=== PATIENT | male | born 1965 | race Caucasian/White ===

== ENCOUNTER 2020-06-17 20:24 | Emergency (ER) | payer OTHER, SELFPAY ==
[2020-06-17 20:24] VITALS: BP 136/86; PULSE 92; RESP 18; TEMP 36.6; O2SAT 95; BMI 35.1
--- NOTE | 2020-06-17 20:36 | US_ITS ---
STUDY: SCROTUM ULTRASOUND REASON FOR EXAM: Male, 55 years old. LT TESTICLE SWELLING S/P LT SPERMATOCELECTOMY TECHNIQUE: Ultrasound evaluation of the scrotum was performed with color Doppler and static rankin-scale imaging. COMPARISON: None. FINDINGS: RIGHT TESTICLE INTRATESTICULAR: There is a normal size of the right testicle. The right testicle measures 4.6 x 3.1 x 2.4 cm. There is a homogenous echotexture. There is normal arterial and normal venous vascularity. There is no demonstrated right testicular mass or cyst. EXTRATESTICULAR: The epididymis is normal in size. The epididymis head measures 1.3 x 1.1 x 0.8 cm. There is normal vascularity of the epididymis. Epididymis cyst measuring 6 x 5 x 5 mm. There is a small hydrocele. There is no demonstrated varicocele. There is no demonstrated extratesticular mass or cyst. Right scrotal wall thickening and hypervascularity. This measures up to 3 mm. LEFT TESTICLE INTRATESTICULAR: There is a normal size of the left testicle. The left testicle measures 4.2 x 2.7 x 2.3 cm. There is a homogenous echotexture. There is normal arterial and normal venous vascularity. There is no demonstrated left testicular mass or cyst. EXTRATESTICULAR: The epididymis is normal in size. The epididymis head measures 1.3 x 1.1 x 0.9 cm. There is normal vascularity of the epididymis. 2 x 2 x 2 mm epididymis cyst. There is a moderate size hydrocele. There is no demonstrated varicocele. There is no demonstrated extratesticular mass or cyst. A drainage catheter is present in the left scrotum. Left scrotal wall thickening and hypervascularity. This measures up to 7 mm. US/Testicular with Arterial Flow IMPRESSION: Drainage catheter in the left scrotum. Bilateral hydroceles, larger on the left. Bilateral scrotal wall thickening and hypervascularity, more extensive on the left. This could be postoperative in nature, although superimposed cellulitis cannot be excluded based on the ultrasound appearance. No evidence of intratesticular pathology. No gross intrascrotal hemorrhage is visible by ultrasound. Electronically Signed: Jose Saunders MD at 21:55 EDT Tel , Service support ,
[2020-06-17] MEDS: Morphine 4 MG/ML Syringe IV (22:32)
[2020-06-17 22:42] LABS: Absolute Lymphocyte Count 1.76 X10^3/uL (0.83-4.51); Absolute Neutrophil Count 5.1 X10^3/uL (2.0-7.7); Basophil# 0.03 X10^3/uL; Basophil% 0.4 % (0-1); Eosinophil# 0.18 X10^3/uL; Eosinophils% 2.3 % (0-5); Lymphocyte # 1.76 X10^3/ul (4.0); Lymphocyte % 22.3 % (19-41); Mean Corp Hgb Conc 34.1 g/dL (32-36); Mean Corpuscular Hgb 30.2 pg (27.0-32.0); Mean Corpuscular Volume 88.6 fL (80-94); Mean Platelet Vol. 10.4 fl (6.2-12.0); Monocyte# 0.75 X10^3/uL; Monocyte% 9.5 % (0-10); NRBC Flagged by Analyzer 0 % (0-5); Neutrophil # 5.13 X10^3/uL (2.7-7.7); Neutrophil % 65.1 % (47-70); Platelet Count 186 K/mm3 (150-450); RBC Distribution Width CV 13.2 % (11.6-14.6); RBC Distribution Width SD 42.9 fl (35.1-43.9); Red Blood Count 4.63 M/mm3 (4.6-6.2); White Blood Count 7.9 K/mm3 (4.4-11.0)
[2020-06-17 22:57] LABS: Anion Gap 5 (5-15); BUN 19 mg/dL (7-18); BUN/Creat Ratio 18.8 RATIO (10-20); Calcium,Total 8.6 mg/dL (8.5-10.1); Chloride 106 mmol/L (98-107); Creatinine, Serum 1.01 mg/dL (0.70-1.30); EST Glomerular Filtration Rate 81 mL/min (>60); Est Glom Filt Rate - Afr Amer 98 mL/min (>60); Estimated Creatinine Clearance 96.45 ml/min; Glucose 105 mg/dL (74-106); Potassium 4.2 mmol/L (3.5-5.1); Sodium Level 140 mmol/L (136-145)
[2020-06-17 22:59] LABS: Mucous, Urine 0 SEEN /hpf (<or=2+); Red Blood Cells-Urine 0 SEEN /hpf (0-5); Squamous Epithelial Cells - UA 0 SEEN /hpf (0-5); White Blood Cells 0 SEEN /hpf (0-5)
[2020-06-17 23:05] LABS: Color, Urine Yellow (Yellow); Glucose, Dipstick Normal (Normal); Ketone-Dipstick Negative (Negative); Leukocyte Esterase-Dipstick Negative /ul (Negative); Nitrite-Dipstick Negative (Negative); Occult Blood-Urine Negative /ul (Negative); Protein-Dipstick Negative (Negative); Urine Bilirubin Dipstick Negative (Negative); Urine Clarity Clear (Clear); Urine Urobilinogen Normal (Normal)
--- NOTE | 2020-06-17 23:14 | ED.VIS.GEN ---
History of Present Illness Chief Complaint: Male Pain/Injury Informant: Patient Onset: Days Context: Gradual Onset Timing: Continuous Narrative: Patient is a 55-year-old male that is 5 days status post spermatocele resection by urology at the [place] [facility] presenting with worsening testicular pain and swelling. Patient states drain was placed but has had some increased seeping from it. He does note increased pain. Has been taking Percocet for pain. His surgeon was Dr. David Buck. Patient has a fall appointment in 2 days but was concerned given the amount of swelling and could not get a hold of anyone so he came to the emergency room for further evaluation. He denies any painful or difficulty urinating. He denies any fever or chills. Denies any systemic symptoms. No other complaints at this time. Past Medical History - Allergies and Home Meds Allergies/Adverse Reactions: Allergies No Known Allergies Allergy (Verified 06/17/20 20:27) Primary Care Physician: [facility] [Primary Care Provider] - Past Medical History: None Surgical History: - - Spermatocele resection Lives: Spouse/ Significant Other Smoking Status: Never smoker Review of Systems General: Denies: Chills, Fever, Sweats Eyes: Denies: Visual changes - bilaterally, Diplopia ENT: Denies: Rhinorrhea, Sore throat Cardiovascular: Denies: Chest pain, Palpitations Respiratory: Denies: Dyspnea, Cough, Dyspnea on exertion Gastrointestinal: Denies: Abdominal pain, Nausea, Vomiting, Diarrhea, Melena, Hematochezia Genitourinary: Reports: - - Testicular pain and swelling. Denies: Dysuria, Hematuria, Frequency Musculoskeletal: Denies: Back pain, Extremity Pain Skin: Denies: Rash, Wounds Neurological: Denies: Headache, Weakness, Numbness Physical Exam Vital Signs/Narrative: Vital Signs Temp Pulse Resp BP Pulse Ox 06/17/20 20:24 97.8 F 92 18 136/86 H 95 Inital Vital Signs reviewed: Yes General: Well nourished, Well developed, No Acute Distress Head: Normocephalic, Atraumatic Eyes: Perrl, EOMI ENT: Moist mucous membranes, No rhinorrhea Neck: Supple, Nontender Cardiovascular: Regular rate, Regular rhythm, No murmurs Respiratory: No distress, CTA bilaterally, Chest nontender Abdomen: Soft, Nontender, Nondistended, Normal bowel sounds : - - Edema and tenderness palpation of the scrotum, more pronounced on the left. 2 surgical incisions are noted 1 with a drain in place. No purulent drainage is able to be expressed with palpation. Patient does have some slight induration of the scrotal wall. No crepitus appreciated. Penis appears normal. Significant tenderness to palpation with manipulation of the testicles. Back: Nontender, Normal Inspection. Negative for: CVA tenderness Extremities: Nontender, No edema Skin: Normal color, No rash Neurological: Alert, Oriented x3, Cranial nerves II-XII grossly intact, Normal Strength, Normal Sensation Psychological: Normal affect, Normal Mood Diagnostic/Tx/Re-eval Clinical Impression(s) from Imaging Studies Testicular Ultrasound 06/17/20 20:36 IMPRESSION: Drainage catheter in the left scrotum. Bilateral hydroceles, larger on the left. Bilateral scrotal wall thickening and hypervascularity, more extensive on the left. This could be postoperative in nature, although superimposed cellulitis cannot be excluded based on the ultrasound appearance. No evidence of intratesticular pathology. No gross intrascrotal hemorrhage is visible by ultrasound. Electronically Signed: Jose Saunders MD at 21:55 EDT Tel , Service support , Laboratory Data 06/17/20 06/17/20 06/17/20 22:30 22:30 22:53 WBC 7.9 RBC 4.63 Hgb 14.0 Hct 41.0 MCV 88.6 MCH 30.2 MCHC 34.1 RDW Std Deviation 42.9 RDW Coeff of Jenni 13.2 Plt Count 186 MPV 10.4 Immature Gran % (Auto) 0.400 Neut % (Auto) 65.1 Lymph % (Auto) 22.3 [place] % (Auto) 9.5 Eos % (Auto) 2.3 Baso % (Auto) 0.4 Absolute Neuts (auto) 5.1 Absolute Lymphs (auto) 1.76 Nucleated RBC % 0 Sodium 140 Potassium 4.2 Chloride 106 Carbon Dioxide 29.0 Anion Gap 5 BUN 19 H Creatinine 1.01 Estim Creat Clear Calc 96.45 Est GFR (MDRD) Af Amer 98 Est GFR (MDRD) Non-Af 81 BUN/Creatinine Ratio 18.8 Glucose 105 Calcium 8.6 Urine Color Yellow Urine Clarity Clear Urine pH 6.0 Ur Specific [place] 1.020 Urine Protein Negative Urine Glucose (UA) Normal Urine Ketones Negative Urine Occult Blood Negative Urine Nitrite Negative Urine Bilirubin Negative Urine Urobilinogen Normal Ur Leukocyte Esterase Negative Urine RBC 0 SEEN Urine WBC 0 SEEN Ur Squamous Epith Cells 0 SEEN Urine Bacteria 1+ Urine Mucus 0 SEEN - Medical Decision Making Patient is evaluated for postoperative pain and swelling of his testicles. His surgery was performed at the [facility] in [place]. I did attempt to get a hold of urology on-call multiple times but was unsuccessful. I did discuss with the ER physician at the [place] who was able to look the patient's chart and tell me which surgery the patient had. Patient CBC is normal no signs of infection. Urinalysis is also normal. Patient is given morphine for pain control and has improvement of his symptoms. ultrasound obtained in the emergency room shows bilateral hydroceles, larger on the left as well as bilateral scrotal wall thickening and hypervascularity extensive on the left. Cannot rule out cellulitis but could be postoperative in nature. Given the patient's increased pain will treat as if it is cellulitis with Keflex. I did discuss the case with urology on-call, , who felt that this was sufficient given his otherwise normal exam, lab work and vital signs. Patient has close follow-up in 2 days with his urologist. Patient is counseled on return precautions. He is given first dose of antibiotics in the emergency room. ED Disposition - Plan for ED Patient: Disposition: Home or Assisted Living Diagnosis: Post-operative pain, Testicular pain, left, Cellulitis Instructions: ED Testicular Pain UKO, ED Cellulitis Prescriptions: Cephalexin [Keflex] 500 mg PO Q6 #28 cap Prescription Printed Referrals: [facility] [Primary Care Provider] - Additional Instructions: You not have any signs of abscess on your ultrasound. It is not clear if your swelling is normal postoperative changes versus early cellulitis. Will start you on antibiotics just to be safe. Please make sure you go to your follow-up appointment in 2 days. Return the emergency room if you have any significantly worsening symptoms. Continue to ice the area for pain. He may also alternate ibuprofen with your Percocet for pain control.
[2020-06-17 23:16] LABS: Bacteria 1+ /hpf (None Seen)
[2020-06-18] MEDS: Cephalexin 250 MG Capsule 500 MG PO (00:20)
== END 2020-06-18 00:21 | disposition home or self-care (01) ==
PROVIDERS: Emergency Provider Emergency Medicine
DX: N49.2 Inflammatory disorders of scrotum (principal); G89.18 Other acute postprocedural pain; N43.3 Hydrocele, unspecified
CPT/HCPCS: 76870; 80048; 81001; 85025; 93976; 96374; 99283; A4216

== ENCOUNTER 2021-09-20 12:59 | Emergency (ER) | payer OTHER, SELFPAY ==
[2021-09-20 12:59] VITALS: BP 124/79; PULSE 96; RESP 24; TEMP 36.8; O2SAT 88; BMI 34.9
[2021-09-20 13:01] VITALS: BP 124/79; PULSE 96; RESP 24; TEMP 36.8; O2SAT 94; O2SAT 95
[2021-09-20 13:02] VITALS: O2SAT 89
--- NOTE | 2021-09-20 13:35 | CT_ITS ---
STUDY: CTA CHEST REASON FOR EXAM: Male, 56 years old. Chest pain. Covid positive. RADIATION DOSAGE (If Supplied By Facility): CTDIvol = ( 14.99 ) mGy, DLP = ( 565.71 ) mGycm TECHNIQUE: The examination was performed with the intravenous administration of IV 100mL Isovue-370. Post-processing of the angiographic images was performed, with multiplanar reformation and 3D reconstruction. Individualized dose optimization techniques were used for this CT. COMPARISON: None. FINDINGS: Normal enhancement of the main pulmonary artery and right and left pulmonary arteries. Normal enhancement of the bilateral peripheral pulmonary arteries. There is no demonstrated pulmonary embolism. Normal thoracic aorta and visualized great vessels. There is no demonstrated aortic dissection. Normal heart and pericardium. Normal mediastinum. Normal hilar regions. Normal visualized trachea and bronchi. The lungs are well expanded. Diffuse bilateral pulmonary infiltrates involving both lungs in both upper and lower lobes. There is a preferential peripheral distribution. This is suggestive of Covid pneumonitis. Normal pleura. Normal chest wall structures. There are degenerative changes of thoracic spine. Normal visualized upper abdomen. CT/CTA Chest W/WO Contrast IMPRESSION: Diffuse bilateral pulmonary infiltrates in the preferential peripheral distribution. This is suggestive of pneumonitis associated with Covid. Electronically Signed: Andrew Noriega MD at 15:05 EST , Service support ,
--- NOTE | 2021-09-20 13:36 | EKG12_ITS ---
Test Reason : CP Blood Pressure : / mmHG Vent. Rate : 094 BPM Atrial Rate : 094 BPM P-R Int : 138 ms QRS Dur : 082 ms QT Int : 344 ms P-R-T Axes : 075 020 042 degrees QTc Int : 430 ms Normal sinus rhythm Normal ECG Confirmed by JOSE G DALAL, HOSEA ([id number]), general expeditor IRMA MEDINA ([id number]) on 09/22/2021 9:53:22 AM Referred By: MARC/ISSA Confirmed By:HOSEA ARAIZA MD
--- NOTE | 2021-09-20 13:48 | NURSING ---
NO OLD EKGS
--- NOTE | 2021-09-20 13:52 | NURSING ---
NO OLD EKGS
[2021-09-20 14:01] VITALS: BP 124/79; PULSE 96; RESP 20; TEMP 36.8; O2SAT 95
[2021-09-20] MEDS: 0.9% Normal Saline 1,000 ML 1000 ML IV (14:15)
[2021-09-20 14:16] LABS: Absolute Lymphocyte Count 0.81 X10^3/uL (0.83-4.51); Absolute Neutrophil Count 2.7 X10^3/uL (2.0-7.7); Basophil# 0.01 X10^3/uL; Basophil% 0.3 % (0-1); Eosinophil# 0.01 X10^3/uL; Eosinophils% 0.3 % (0-5); Hematocrit 42.6 % (40-54); Lymphocyte # 0.81 X10^3/ul (0.83-4.51); Lymphocyte % 20.7 % (19-41); Mean Corp Hgb Conc 35.2 g/dL (32-36); Mean Corpuscular Hgb 29.7 pg (27.0-32.0); Mean Corpuscular Volume 84.4 fL (80-94); Mean Platelet Vol. 10.4 fl (6.2-12.0); Monocyte# 0.36 X10^3/uL; Monocyte% 9.2 % (0-10); NRBC Flagged by Analyzer 0 % (0-5); Neutrophil # 2.71 X10^3/uL (2.7-7.7); Platelet Count 124 K/mm3 (150-450); RBC Distribution Width CV 13.2 % (11.6-14.6); RBC Distribution Width SD 41.1 fl (35.1-43.9); Red Blood Count 5.05 M/mm3 (4.6-6.2); White Blood Count 3.9 K/mm3 (4.4-11.0)
[2021-09-20] MEDS: Ondansetron 4 MG/2 ML Vial IV (14:22)
[2021-09-20] MEDS: Ketorolac 15 MG/ML Vial IV (14:22)
[2021-09-20 14:32] LABS: Anion Gap 9 (5-15); BUN 12 mg/dL (7-18); Chloride 96 mmol/L (98-107); EST Glomerular Filtration Rate 82 mL/min (>60); Est Glom Filt Rate - Afr Amer 99 mL/min (>60); Estimated Creatinine Clearance 93.62 ml/min; Glucose 99 mg/dL (74-106); Potassium 3.8 mmol/L (3.5-5.1); Sodium Level 132 mmol/L (136-145); Troponin-I HS 11 pg/mL (3.0-78.0)
--- NOTE | 2021-09-20 15:35 | ED.VIS.DYS ---
HPI History of Present Illness Chief Complaint: Shortness of Breath Narrative Narrative: Patient presenting for evaluation secondary to shortness of breath and complications of coronavirus. Patient reports that he is approximately 1 week out from start of his symptoms. Patient states that he has been having some increasing shortness of breath. Patient reports that throughout the course of this illness he has had decreased p.o. intake. He does report that he has some nausea. No real vomiting. He does have intermittent loose stools. He has fevers and body aches associated with this and generalized weakness. Patient denies underlying significant medical history. No underlying lung history. He is not a smoker. Patient states that he has a past history of DVT. Denies any hemoptysis. Review of systems otherwise negative. [facility] Medical History DVT (deep venous thrombosis) High blood pressure Home Medications cephalexin 500 mg PO Q6 #28 cap 06/17/20 [Rx Last Taken Unknown] methylphenidate HCl 36 mg PO DAILY 06/17/20 [History Last Taken Unknown] ondansetron 8 mg PO Q8H PRN PRN #20 tab 09/20/21 [Rx Last Taken Unknown] Allergy/AdvReac Type Severity Reaction Status Date / Time No Known Allergies Allergy Verified 09/20/21 13:02 Social History Smoking Status: Never smoker ROS ROS ED Constitutional Constitutional ED: Reports chills and fever(s) ENT ENT ED: Denies rhinorrhea Cardiovascular Cardiovascular: Denies chest pain Respiratory/Chest Respiratory/Chest: Reports cough and dyspnea Gastrointestinal Gastrointestinal: Reports diarrhea and nausea; Denies vomiting Genitourinary Genitourinary ED: Denies dysuria or hematuria Musculoskeletal Musculoskeletal: Reports myalgias Integumentary Denies rash Neurologic Neurologic: Denies paresthesias or weakness Psychiatric Psychiatric: Denies depression Endocrine Endocrinology: Denies fatigue Allergic/Immunologic Allergic/Immunologic ED: Denies urticaria EXAM Physical Exam Const Vital Signs: 09/20/21 12:59 09/20/21 13:01 09/20/21 14:01 Temperature 98.2 F 98.2 F 98.2 F Temperature Source Oral Oral Oral Pulse Rate 96 96 96 Respiratory Rate 24 H 24 H 20 H Respiratory Effort Short of Breath Blood Pressure 124/79 H 124/79 H 124/79 H Blood Pressure Mean 94 94 94 Pulse Ox 88 95 95 Oxygen Delivery Method Room Air Room Air Room Air Positive well nourished and well developed General Appearance ED: well developed and NAD HEENT Reports dry mucous membranes Negative for trauma or tenderness Mouth ED: Yes dry mucous membranes Mouth: dry mucous membranes Eyes EOMs intact bilaterally Neck no lymphadenopathy, supple and no JVD Chest Wall inspection of chest normal Resp normal respiratory effort and clear to auscultation bilaterally Cardio regular rate, regular rhythm, no murmurs and peripheral pulses 2+ throughout GI normal to inspection, nondistended, normoactive bowel sounds, non-tender and no masses Palpation: soft Back/Spine normal to inspection Extremity normal to inspection Extremity Narrative: 1+ bilateral lower extremity peripheral edema with chronic skin changes of the legs noted. General Extremety ED: Yes edema; Negative for tenderness General Extremity: edema Neuro oriented x3 and no sensory deficits noted Sensorium / Orientation: alert Motor Exam: strength 5/5 throughout Psych mental status grossly normal Skin no rashes or lesions noted MDM MDM MDM Narrative Medical decision making narrative: Patient presented for evaluation secondary to coronavirus. IV was tablets patient was given Zofran, Toradol, and 1 L normal saline. CBC shows leukocyte suppression. Chemistry was grossly unremarkable with stable renal function no significant electrolyte abnormalities. Troponin was noted to be 11. Given the patient's history of DVT, we did go straight to CT angiogram of the chest. This shows diffuse bilateral pulmonary infiltrates, no evidence of pulmonary embolism. Patient maintained good saturations in the emergency department of 95% on room air. He had some symptomatic improvement. At this point I believe the patient is appropriate for continued outpatient management. To be discharged with a course of Zofran. To follow-up with primary care. Patient was discharged in stable condition Lab Data Labs: Laboratory Results - last 24 hr 09/20/21 09/20/21 14:04 14:04 WBC 3.9 L RBC 5.05 Hgb 15.0 Hct 42.6 MCV 84.4 MCH 29.7 MCHC 35.2 RDW Std Deviation 41.1 RDW Coeff of Jenni 13.2 Plt Count 124 L MPV 10.4 Immature Gran % (Auto) 0.500 Neut % (Auto) 69.0 Lymph % (Auto) 20.7 [place] % (Auto) 9.2 Eos % (Auto) 0.3 Baso % (Auto) 0.3 Absolute Neuts (auto) 2.7 Absolute Lymphs (auto) 0.81 L Nucleated RBC % 0 Sodium 132 L Potassium 3.8 Chloride 96 L Carbon Dioxide 27.0 Anion Gap 9 BUN 12 Creatinine 1.00 Estim Creat Clear Calc 93.62 Est GFR (MDRD) Af Amer 99 Est GFR (MDRD) Non-Af 82 BUN/Creatinine Ratio 12.0 Glucose 99 Calcium 8.0 L Troponin I High Sens 11 Radiography Diagnostic Testing: Clinical Impression(s) from Imaging Studies Chest CTA 09/20/21 13:35 IMPRESSION: Diffuse bilateral pulmonary infiltrates in the preferential peripheral distribution. This is suggestive of pneumonitis associated with Covid. Electronically Signed: Andrew Noriega MD at 15:05 EST , Service support , EKG Initial EKG: Attestation: I personally reviewed and interpreted this EKG as follows: (Sinus rhythm [address] segments normal T waves normal [place] and QTc intervals no evidence of acute ischemia or arrhythmia) Discharge Plan Triage Chief Complaint: Shortness of Breath ED Provider: Cecilio Medel Dx/Rx/DC Orders Clinical Impression: COVID-19 Instructions: Coronavirus Disease 2019 (COVID-19): Caring for Yourself or Others Prescriptions: New ondansetron 4 mg tablet,disintegrating 8 mg PO Q8H PRN PRN (Reason: Nausea) Qty: 20 RF: 0 No Action methylphenidate HCl 36 MG tablet extended release 24hr 36 mg PO DAILY RF: 0 cephalexin 500 MG capsule 500 mg PO Q6 Qty: 28 RF: 0 [facility] Referrals: [facility] [Primary Care Provider] - Disposition Disposition: Home, Self Care
[2021-09-20 15:52] VITALS: BP 133/80; PULSE 76; RESP 21; O2SAT 93
[2021-09-20 15:58] VITALS: BP 133/80; PULSE 77; RESP 14; O2SAT 93
== END 2021-09-20 15:58 | disposition home or self-care (01) ==
PROVIDERS: Emergency Provider Emergency Medicine
DX: U07.1 COVID-19 (principal); Z86.718 Personal history of other venous thrombosis and embolism
CPT/HCPCS: 71275; 80048; 84484; 85025; 93005; 96361; 96374; 96375; 99283; J7030; Q9967; J2405

== ENCOUNTER 2023-07-13 19:45 | Emergency (ER) | payer BC, OTHER, SELFPAY ==
[2023-07-13 19:45] VITALS: BP 154/92; PULSE 76; RESP 18; TEMP 36.8; O2SAT 97; BMI 38.2
--- NOTE | 2023-07-13 20:03 | EDS_ITS ---
HPI History of Present Illness Chief Complaint: Lower Extremity Injury [facility] Medical History DVT (deep venous thrombosis) High blood pressure Home Medications cephalexin 500 mg capsule 500 mg PO Q6 #28 caps 06/17/20 [Rx Last Taken Unknown] methylphenidate HCl 36 mg tablet,extended release 24 hr 36 mg PO DAILY 06/17/20 [History Last Taken Unknown] ondansetron 4 mg disintegrating tablet 8 mg (2 x 4 mg) PO Q8H PRN PRN Nausea #20 tabs 09/20/21 [Rx Last Taken Unknown] prednisone 20 mg tablet 20 mg PO DAILY #5 tabs 07/13/23 [Rx Last Taken Unknown] Allergy/AdvReac Type Severity Reaction Status Date / Time gabapentin AdvReac Mild Upset Verified 07/13/23 19:48 Stomach Social History Smoking Status: Never smoker EXAM Physical Exam Const Vital Signs: 07/13/23 19:45 Temperature 98.3 F Temperature Source Temporal Pulse Rate 76 Respiratory Rate 18 Blood Pressure 154/92 H Blood Pressure Mean 112 Pulse Ox 97 Oxygen Delivery Method Room Air MDM MDM MDM Narrative Medical decision making narrative: HISTORY OF PRESENT ILLNESS: 58-year-old male here with right leg pain. He states he is a chronic right ankle pain that is worse over the last several days. States has had this for years. Denies history of peripheral artery disease, patient denies active cancer, being bedridden for greater than 3 days, denies unilateral leg swelling, denies any varicose veins, denies any calf tenderness, denies tenderness along deep venous system. Denies major surgery within 12 weeks, recent paralysis. Denies any recent trauma. Denies any history of gout. REVIEW OF SYSTEMS: Pertinent positives: leg pain Pertinent negatives: Fever, numbness, tingling, loss of movement or sensation, chest pain or shortness of breath PHYSICAL EXAM: Nursing triage notes reviewed, Vital signs reviewed Constitutional: please see mdm Lungs: Clear to auscultation, No wheezing or rales. No increased work of breathing, no conversational dyspnea, no accessory muscle use, no nasal flaring. No respiratory distress noted Heart: Regular rate and rhythm, No murmurs, No rubs and No gallops, 2+ distal pulses (radial, femoral, posterior tibial) in all extremities Extremities: Swelling noted to right lower extremity (chronic per patient) Neuro: N intact sensation L1-S1 dermatomal distributions. Intact 5/5 strength in hip flexion (T12-L3). Knee extension (L2-L4). Ankle dorsiflexion (L4-L5). Ankle plantar flexion (S1). Great toe extension (L5). 2+ patellar and Achilles DTRs. Skin: N chronic changes noted in the right lower extremity, no obvious erythema, no fluctuance, no induration, no crepitus or bullae MEDICAL DECISION MAKING: Chief Complaint: Leg pain External records reviewed: No recent advanced imaging the involved extremity Factors affecting care: Hypertension Social determinants of health: none History obtained from others: none Consults: none [facility] Narrative: Patient was hemodynamically stable, afebrile, nontoxic-appearing. Right lower extremity is neurovascularly intact. No evidence of infections, crepitus, bullae or signs of arterial occlusion. Compartments are soft. No obvious signs of joint effusion. No signs of septic arthritis. I considered the following differential diagnosis: Fracture, dislocation, septic arthritis, arterial occlusion, DVT, The senses the patient's history and physical exam were not consistent with a DVT. He has chronic leg swelling but nothing acute. He denies any chest pain or shortness of breath. Patient is a low DVT risk score. Medication for ultrasound this time. There is no sign of compartment syndrome, no signs of arterial occlusion or septic arteritis, clinical evaluation. X-rays obtained to rule any bony abnormalities. X-ray was read and reviewed by myself and showed evidence of degenerative changes but NO obvious fracture dislocation. Radiologist agrees my read. I gave Percocet, ibuprofen, prednisone. Will discharge on prednisone instructions take Tylenol ibuprofen every 6 hours. We will give close PCP follow-up for further outpatient evaluation The patient and/or family, caregivers express understanding. The patient and/or family, caregivers agrees with the plan. Shared decision making: I will have a discussion with the patient and or visitors regarding risk/benefits of further testing or admission. They will be made aware of of the risk/benefits inherent in this decision they will be given the opportunity to voice understanding. Total critical care time today provided was at least 0 minutes. This excludes separately billable procedures. Critical care time (if documented) is secondary to the patient having high probability of clinically significant/life threatening deterioration in the patient's condition which required my urgent intervention. Impression: 1. Right ankle pain Dispo: Discharge Radiography Diagnostic Testing: Clinical Impression(s) from Imaging Studies Ankle X-Ray 07/13/23 20:34 IMPRESSION: Minor degenerative disease otherwise no acute fracture or subluxation. Electronically Signed: Alison Polo MD at 21:03 EDT , Discharge Plan Triage Chief Complaint: Lower Extremity Injury ED Provider: Jordan Seth Dx/Rx/DC Orders Prescriptions: New prednisone 20 mg tablet 20 mg PO DAILY Qty: 5 0RF No Action methylphenidate HCl 36 MG tablet extended release 24hr 36 mg PO DAILY cephalexin 500 MG capsule 500 mg PO Q6 Qty: 28 0RF ondansetron 4 mg tablet,disintegrating 8 mg PO Q8H PRN PRN (Reason: Nausea) Qty: 20 0RF [facility] [facility]errals[place] [facility] [Primary Care Provider] - Activity Restrictions/Additional Instructions: Thank you for trusting us with your care today! Please take Tylenol (2 pills, 650 mg), ibuprofen (2 pills, 400 mg) every 6 hours as needed for pain and fever control. Please take prednisone as prescribed. Please return to the emergency department if your symptoms change or worsen. Please follow with your primary care physician for further outpatient evaluation and management. Disposition Disposition: Home, Self Care Discharge Date/Time: 07/13/23 21:55
--- NOTE | 2023-07-13 20:34 | RAD_ITS ---
STUDY: X-RAY - RIGHT ANKLE REASON FOR EXAM: Male, 58 years old. pain TECHNIQUE: 3 view(s) of the ankle. COMPARISON: None. FINDINGS: Normal visualized distal tibia and fibula. Normal medial and lateral malleoli. Minimal degenerative arthrosis of the medial tibiotalar articulation. Otherwise normal tibiotalar articulation and ankle mortise. Normal visualized talus and calcaneus. The visualized subtalar, talonavicular, calcaneocuboid and tarsal articulations are normal. There is no demonstrated fracture. Soft tissue swelling at the ankle. RAD/Ankle min 3 Views IMPRESSION: Minor degenerative disease otherwise no acute fracture or subluxation. Electronically Signed: Alison Polo MD at 21:03 EDT ,
[2023-07-13] MEDS: predniSONE 20 MG Tablet 40 MG PO (21:08)
[2023-07-13] MEDS: Ibuprofen 200 MG Tablet 400 MG PO (21:08)
[2023-07-13] MEDS: Oxycodone/Apap 5/325 Tablet PO (21:08)
== END 2023-07-13 21:55 | disposition home or self-care (01) ==
PROVIDERS: Emergency Provider Emergency Medicine; Visit Provider Emergency Medicine
DX: M25.571 Pain in right ankle and joints of right foot (principal); I10 Essential (primary) hypertension
CPT/HCPCS: 73610; 99282

== ENCOUNTER 2023-09-03 05:13 | Emergency (ER) | payer OTHER, SELFPAY ==
[2023-09-03 05:14] VITALS: BP 153/90; PULSE 68; RESP 18; TEMP 36.7; O2SAT 95; BMI 38.9
--- NOTE | 2023-09-03 05:44 | EX.ED.DYSGE1 ---
HPI History of Present Illness Chief Complaint: Dizziness Informant: patient Narrative Narrative: Patient presents to the ER just after waking up and rolling out of bed, having the acute onset of severe spinning dizziness along with nausea. When he would lay down the symptoms would trigger again. If he would sit up and remain still he would feel better. He states he actually felt best while walking straight, during which he had no disequilibrium, ataxia, problems. However when he went to lay back down he felt miserable, vertiginous again. He denies any headache, vision changes or visual field cuts, tinnitus, earache. He had a cold 2 or 3 weeks ago, and he comes in with an N95 on, suspicious he has COVID because he feels achy all over and fatigue like he did when he had COVID. Denies any cough or fevers. PFSH [facility] Medical History DVT (deep venous thrombosis) High blood pressure Home Medications methylphenidate HCl 36 mg tablet,extended release 24 hr 36 mg PO DAILY 06/17/20 [History Last Taken Unknown] ondansetron 4 mg disintegrating tablet 8 mg (2 x 4 mg) PO Q8H PRN PRN Nausea #20 tabs 09/20/21 [Rx Last Taken Unknown] prednisone 20 mg tablet 20 mg PO DAILY #5 tabs 07/13/23 [Rx Last Taken Unknown] meclizine 25 mg tablet 25 mg PO Q8H PRN PRN Dizziness #24 tabs 09/03/23 [Rx Last Taken Unknown] ondansetron 4 mg disintegrating tablet 8 mg (2 x 4 mg) PO Q8H PRN PRN Nausea #20 tabs 09/03/23 [Rx Last Taken Unknown] Allergy/AdvReac Type Severity Reaction Status Date / Time gabapentin AdvReac Mild Upset Verified 09/03/23 05:18 Stomach Social History Smoking Status: Never smoker ROS ROS ED Constitutional Constitutional ED: Reports body ache(s) and malaise; Denies chills or fever(s) Eyes Eyes: Denies change in vision or diplopia ENT ENT ED: Reports vertigo; Denies ear pain, rhinorrhea or sore throat Cardiovascular Cardiovascular: Denies chest pain or palpitations Respiratory/Chest Respiratory/Chest: Denies cough or dyspnea Gastrointestinal Gastrointestinal: Reports nausea and vomiting; Denies abdominal pain or diarrhea Genitourinary Genitourinary ED: Denies dysuria or hematuria Musculoskeletal Musculoskeletal: Denies back pain or neck pain Integumentary Denies abscess or rash Neurologic Neurologic: Reports vertigo; Denies abnormal speech, disequilibrium, headache(s), lack of coordination, paresthesias or weakness Psychiatric Psychiatric: Denies anxiety or suicidal thoughts EXAM Physical Exam Const Vital Signs: 09/03/23 05:14 09/03/23 05:54 Temperature 98.0 F Temperature Source Temporal Pulse Rate 68 Respiratory Rate 18 Respiratory Effort Normal Non-Labored Respiratory Pattern Normal Blood Pressure 153/90 H Blood Pressure Mean 111 Pulse Ox 95 Oxygen Delivery Method Room Air Positive well nourished and well developed General Appearance ED: well developed and NAD HEENT Reports TM's clear and moist mucous membranes normocephalic and atraumatic Tympanic Membrane ED: Yes TM's clear Eyes PERRL and EOMs intact bilaterally Eyes Narrative: No vertical or rotatory or nonfatigable nystagmus with exam at rest. Neck full ROM and supple Resp normal respiratory effort and clear to auscultation bilaterally Cardio regular rate, regular rhythm and no murmurs GI non-tender and non-distended Auscultation: normoactive bowel sounds Palpation: soft Back/Spine no CVA tenderness General Back: other FROM Extremity normal to inspection General Extremety ED: Negative for edema, pulses abnormal or tenderness General Extremity: Negative for edema or pulses abnormal Neuro oriented x3, CN's II-XII intact bilaterally and no sensory deficits noted Neuro Narrative: Normal [id number]-macq and [id number] bilaterally. Lying patient back/supine, he feels poorly, with performing [place], to the right he is negative but to the left he has persistent vertigo with none fatigable horizontal nystagmus, positive finding. Sensorium / Orientation: awake and alert Motor Exam: strength 5/5 throughout Psych mental status grossly normal Skin no rashes or lesions noted and no wounds MDM MDM MDM Narrative Medical decision making narrative: This is all consistent with BPPV of the left ear. Also in the differential is labyrinthitis related to a viral infection that he may have had a couple weeks ago. He is requesting a COVID test which I am more than happy to do even after we discussed that this is not likely COVID. It was negative. Patient was treated empirically while we were waiting for the results with Zofran and meclizine. Afterwards, he felt much, much better. He is able to change positions and ambulate without any symptoms. Wrote prescriptions and discharge him home with ENT follow-up as needed. We discussed that if this does not spontaneously resolve he may need vestibular therapy. Discharge Plan Triage Chief Complaint: Dizziness ED Provider: David Rodas Dx/Rx/DC Orders Clinical Impression: Benign paroxysmal positional vertigo of left ear Instructions: ED BPV Vertigo Prescriptions: New meclizine [meclizine] 25 mg tablet 25 mg PO Q8H PRN PRN (Reason: Dizziness) Qty: 24 0RF ondansetron [ondansetron] 4 mg tablet,disintegrating 8 mg PO Q8H PRN PRN (Reason: Nausea) Qty: 20 0RF No Action methylphenidate HCl 36 MG tablet extended release 24hr 36 mg PO DAILY ondansetron 4 mg tablet,disintegrating 8 mg PO Q8H PRN PRN (Reason: Nausea) Qty: 20 0RF prednisone 20 mg tablet 20 mg PO DAILY Qty: 5 0RF [facility] Care Provider[facility] Referrals: Bharat Paige MD [Med Staff - Active Staff] - [facility] - Disposition Disposition: Home, Self Care
[2023-09-03] MEDS: Ondansetron ODT 4 MG Tablet 8 MG PO (05:50)
[2023-09-03] MEDS: Meclizine HCl 25 MG Tablet PO (05:51)
[2023-09-03 06:51] VITALS: BP 142/60; PULSE 73; RESP 18
== END 2023-09-03 06:52 | disposition home or self-care (01) ==
PROVIDERS: Emergency Provider Emergency Medicine; Visit Provider Emergency Medicine
DX: H81.12 Benign paroxysmal vertigo, left ear (principal); Z86.718 Personal history of other venous thrombosis and embolism
CPT/HCPCS: 87811; 99282

== ENCOUNTER 2023-10-04 00:45 | Emergency (ER) | payer OTHER, SELFPAY ==
[2023-10-04 00:45] VITALS: BP 150/100; PULSE 106; RESP 21; TEMP 36.4; O2SAT 96
--- NOTE | 2023-10-04 00:53 | RAD_ITS ---
INDICATION: FB sensation EXAMINATION/TECHNIQUE: X-RAY - XR Neck Soft Tissue COMPARISON: FINDINGS: SOFT TISSUES: Unremarkable. No radiopaque foreign body. EPIGLOTTIS: No pathologic thickening or enlargement. PROXIMAL AIRWAY: Grossly patent. RAD/Neck for Soft Tissue IMPRESSION: Negative. Electronically Signed: Sol Bull MD at 2:12 EST ,
--- NOTE | 2023-10-04 00:54 | EX.ED.DYSGE1 ---
HPI History of Present Illness Chief Complaint: Shortness of Breath Informant: patient Narrative Narrative: Patient states he woke early this morning with cough and thick phlegm. He states he feels like he has a lot of thick phlegm caught in his throat. He tried coughing up earlier but felt that a completely occluded his airway. He did take some Mucinex prior to arrival. He had some slight chills last night before bed but otherwise has not been sick. [facility] Medical History DVT (deep venous thrombosis) High blood pressure Home Medications methylphenidate HCl 36 mg tablet,extended release 24 hr 36 mg PO DAILY 06/17/20 [History Last Taken Unknown] ondansetron 4 mg disintegrating tablet 8 mg (2 x 4 mg) PO Q8H PRN PRN Nausea #20 tabs 09/20/21 [Rx Last Taken Unknown] prednisone 20 mg tablet 20 mg PO DAILY #5 tabs 07/13/23 [Rx Last Taken Unknown] meclizine 25 mg tablet 25 mg PO Q8H PRN PRN Dizziness #24 tabs 09/03/23 [Rx Last Taken Unknown] ondansetron 4 mg disintegrating tablet 8 mg (2 x 4 mg) PO Q8H PRN PRN Nausea #20 tabs 09/03/23 [Rx Last Taken Unknown] Allergy/AdvReac Type Severity Reaction Status Date / Time gabapentin AdvReac Mild Upset Verified 10/04/23 00:46 Stomach Social History Smoking Status: Never smoker ROS [facility] ED Constitutional Constitutional ED: Denies chills or fever(s) Eyes Eyes: Denies change in vision ENT ENT ED: Denies rhinorrhea or sore throat Cardiovascular Cardiovascular: Denies chest pain or palpitations Respiratory/Chest Respiratory/Chest: Reports cough and sputum; Denies dyspnea Gastrointestinal Gastrointestinal: Denies abdominal pain, nausea or vomiting Musculoskeletal Musculoskeletal: Denies back pain or extremity pain Integumentary Denies Abrasions or rash Neurologic Neurologic: Denies headache(s) or weakness Psychiatric Psychiatric: Denies anxiety or depression Allergic/Immunologic Allergic/Immunologic ED: Denies lip swelling or urticaria EXAM Physical Exam Const Vital Signs: 10/04/23 00:45 10/04/23 00:45 10/04/23 01:52 Temperature 97.6 F L Temperature Source Temporal Pulse Rate 106 H 98 Respiratory Rate 21 H 14 Respiratory Effort Normal Non-Labored Respiratory Depth Normal Respiratory Pattern Tachypnea Normal Blood Pressure 150/100 H Blood Pressure Mean 116 Pulse Ox 96 Oxygen Delivery Method Room Air Room Air Positive well nourished and well developed General Appearance ED: well developed HEENT Reports moist mucous membranes Eyes EOMs intact bilaterally Chest Wall inspection of chest normal and palpation of chest normal Resp normal respiratory effort and clear to auscultation bilaterally Cardio regular rate and regular rhythm GI non-tender Palpation: soft Extremity normal to inspection Neuro oriented x3 and no sensory deficits noted Motor Exam: strength 5/5 throughout Psych mental status grossly normal Skin no rashes or lesions noted MDM MDM MDM Narrative Medical decision making narrative: Patient sent for two-view chest x-ray along with two-view x-ray of the soft tissue neck to ensure no evidence of obvious foreign body or tracheal deviation. Radiography Diagnostic Testing: Clinical Impression(s) from Imaging Studies Soft Tissue Neck X-Ray 10/04/23 00:53 IMPRESSION: Negative. Electronically Signed: Sol Bull MD at 2:12 EST , Chest X-Ray 10/04/23 01:00 IMPRESSION: No radiographic evidence of acute cardiopulmonary disease. Electronically Signed: Sol Bull MD at 2:11 EST , Treatment and Re-Evaluation :: Chest x-ray per my interpretation reveals no acute abnormality. X-ray the soft tissue neck per my interpretation reveals patent airway with no tracheal deviation. Radiology interpretation reviewed and agrees. Patient was given a DuoNeb treatment here. He states he does feel that this helped break up some of the phlegm in his throat. He is much more comfortable now. He will continue Mucinex and I encouraged him to increase fluids to help thin the mucus. Patient is comfortable with discharge to home and return instructions are provided. Discharge Plan Triage Chief Complaint: Shortness of Breath ED Provider: Edyta Pires Dx/Rx/DC Orders Clinical Impression: Phlegm in throat, Dyspnea Instructions: ED Dyspnea Prescriptions: No Action methylphenidate HCl 36 MG tablet extended release 24hr 36 mg PO DAILY ondansetron 4 mg tablet,disintegrating 8 mg PO Q8H PRN PRN (Reason: Nausea) Qty: 20 0RF prednisone 20 mg tablet 20 mg PO DAILY Qty: 5 0RF meclizine [meclizine] 25 mg tablet 25 mg PO Q8H PRN PRN (Reason: Dizziness) Qty: 24 0RF ondansetron [ondansetron] 4 mg tablet,disintegrating 8 mg PO Q8H PRN PRN (Reason: Nausea) Qty: 20 0RF [facility] [[facility]] - As Needed Disposition Disposition: Home, Self Care
--- NOTE | 2023-10-04 01:00 | RAD_ITS ---
INDICATION: cough EXAMINATION/TECHNIQUE: X-RAY - XR Chest 2 Views COMPARISON: 09/20/2021 FINDINGS: LINES/DEVICES: None. LUNGS: No consolidation, edema or effusion. No pneumothorax. MEDIASTINUM AND CARDIOVASCULAR STRUCTURES: Cardiac silhouette not enlarged. Central airways and mediastinal contour are unremarkable. BONES AND SOFT TISSUES: Unremarkable. RAD/Chest PA and Lateral IMPRESSION: No radiographic evidence of acute cardiopulmonary disease. Electronically Signed: Sol Bull MD at 2:11 EST ,
--- OUTSIDE RECORDS SUMMARY | 2023-10-04 01:20 | XMS RPT_ITS | CCD ---
Author Name Unknown Address [address] [place] [address] Organization [facility] Results Test Name Value Interpretation Reference Range Facil ity Summary Purpose Family History No Family History Records Found Advance Directives No Advanced Directives Records Found Additional Source Comments (unrecognized sect ion and content) No Status Records Found INFORMATION SOURCE (unrecogn ized section and content) FOR RECORDS PERTAINING TO PATIENTS WHO ARE OR HAVE BEEN ENROLLED IN A CHEMICAL DEPENDENCY/SUBSTANCEABUSE PROGRAM, SOME INFORMATION MAY BE OMITTED. This clinical summary was aggregated from multiple sources. Caution should be exercised in using it in the provision of clinical care. This summary normalizes information from multiple sources, and as a consequence, information in this document may materially change the coding, format and clinical context of patient data. In addition, data may be omitted in some cases. CLINICAL DECISIONS SHOULD BE BASED ON THE PRIMARY CLINICAL RECORDS. [employer] provides no warranty or guarantee of the accuracy or completeness of information in this document.
[2023-10-04 01:52] VITALS: PULSE 98; RESP 14
[2023-10-04] MEDS: Ipratropium/Albuterol Sulfate 3 ML AMPUL.NEB INHALATION (01:52)
== END 2023-10-04 02:25 | disposition home or self-care (01) ==
PROVIDERS: Emergency Provider Emergency Medicine; Visit Provider Emergency Medicine
DX: R06.02 Shortness of breath (principal); R09.3 Abnormal sputum
CPT/HCPCS: 70360; 71046; 94640; 99282

== ENCOUNTER 2023-11-15 06:46 | Day surgery (SDC) | payer OTHER, SELFPAY ==
[2023-11-14 07:15] VITALS: BMI 38.5
--- OUTSIDE RECORDS SUMMARY | 2023-11-15 06:49 | XMS RPT_ITS | CCD ---
Author Name Unknown Address [address] [place] [address] Organization [facility] Results Test Name Value Interpretation [...] BE BASED ON THE PRIMARY CLINICAL RECORDS. [employer] provides no warranty or guarantee of the accuracy or completeness of information in this document.
[2023-11-15 07:00] LABS: Hematocrit 44.1 % (40-54); Hemoglobin 14.8 g/dL (13.0-16.5); Mean Corp Hgb Conc 33.6 g/dL (32-36); Mean Corpuscular Hgb 29.7 pg (27.0-32.0); Mean Corpuscular Volume 88.6 fL (80-94); Mean Platelet Vol. 9.9 fl (6.2-12.0); Platelet Count 235 K/mm3 (150-450); RBC Distribution Width CV 13.6 % (11.6-14.6); RBC Distribution Width SD 43.9 fl (35.1-43.9); Red Blood Count 4.98 M/mm3 (4.6-6.2); White Blood Count 6.1 K/mm3 (4.4-11.0)
[2023-11-15 07:14] LABS: Anion Gap 4 (5-15); BUN 15 mg/dL (7-18); BUN/Creat Ratio 14.3 RATIO (10-20); Calcium,Total 8.9 mg/dL (8.5-10.1); Chloride 109 mmol/L (98-107); Creatinine, Serum 1.05 mg/dL (0.70-1.30); EST Glomerular Filtration Rate 76 mL/min (>60); Est Glom Filt Rate - Afr Amer 92 mL/min (>60); Estimated Creatinine Clearance 109.91 ml/min; Glucose 113 mg/dL (74-106); Potassium 4.5 mmol/L (3.5-5.1); Sodium Level 143 mmol/L (136-145)
--- NOTE | 2023-11-15 08:12 | HP.PCM_ITS ---
HPI - General HPI Narrative ADRIÁN BADILLO, is a 58 M who presents with right lower extremity varicosities and skin changes/prior ulceration. [facility] has both deep and [facility] Plan for venogram to assess and treat compression prior to possible ablation [facility] Medical History DVT (deep venous thrombosis) High blood pressure Home Medications methylphenidate HCl 36 mg tablet,extended release 24 hr 36 mg PO DAILY 06/17/20 [History Last Taken 11/15/23] ondansetron 4 mg disintegrating tablet 8 mg (2 x 4 mg) PO Q8H PRN PRN Nausea #20 tabs 09/20/21 [Rx Last Taken Unknown] prednisone 20 mg tablet 20 mg PO DAILY #5 tabs 07/13/23 [Rx Last Taken Unknown] meclizine 25 mg tablet 25 mg PO Q8H PRN PRN Dizziness #24 tabs 09/03/23 [Rx Last Taken Unknown] Allergy/AdvReac Type Severity Reaction Status Date / Time gabapentin AdvReac Mild Upset Verified 10/05/23 13:40 Stomach Family History Other Bleeding disorder CVA (cerebral vascular accident) Cancer Seizures Social History Smoking Status: Never smoker ROS Constitutional Constitutional: Denies chills, fever(s), frequent falls, lethargy or weakness Eyes Eyes: Denies blind spots, change in vision or loss of vision ENT HEENT: Denies bleeding gums, hoarseness or sore throat Cardiovascular Cardiovascular: Denies abdominal pain, bluish discoloration of hand/feet, chest pain with activity, claudication, cold extremities, cyanosis, dyspnea on exertion, erythema on extremities, irregular heart rhythm, leg edema, leg ulcers, numbness in extremities or weakness in extremities Respiratory/Chest Respiratory/Chest: Denies cough, excessive phlegm production, shortness of breath at rest, shortness of breath with exertion or wheezing Gastrointestinal Gastrointestinal: Denies anorexia, change in stool character, constipation, diarrhea, melena or rectal bleeding Genitourinary Genitourinary: Denies dysuria or hematuria Musculoskeletal Musculoskeletal: Denies abnormal gait Integumentary Integumentary: Reports other Details: ; Denies erythema, non-healing lesions or wounds Neurologic Neurologic: Denies abnormal speech, focal weakness, headache(s), loss of vision, numbness, paresthesias or sensory deficit Hematologic/Lymphatic Hematologic/Lymphatic: Denies easy bleeding, easy bruising or lymphadenopathy Vital Signs Vital Signs Vital Signs: Weight Weight: 300 lb 9.822 oz Body Mass Index (BMI) 38.5 Physical Exam Const alert, oriented x3, no apparent distress and healthy appearing General Appearance: cooperative; Negative for combative or lethargic Orientation / Consciousness: awake Exam Limitations: no limitations HEENT Head and Scalp: normocephalic and atraumatic Eyes EOMs intact bilaterally General Eye: normal appearance of both eyes Neck full ROM, no lymphadenopathy, thyroid normal and No no carotid bruits General: trachea midline; Negative for lymphadenopathy or tenderness Thyroid: thyroid normal Lymph Lymphatic: Negative for no lymphadenopathy noted Resp normal respiratory effort, no use of accessory muscles and clear to auscultation bilaterally Effort and Inspection: Negative for labored, stridor or audible wheezes Cardio regular rate, regular rhythm and no murmurs Peripheral Pulses: brachial pulses present, radial pulses present, femoral pulses present, popliteal pulses present, posterior tibial pulses present and dorsalis pedis pulses present GI non-tender and non-distended; Negative for hepatosplenomegaly Back/Spine Cervical Spine: cervical ROM normal Extremity full ROM, normal capillary refill and no clubbing, cyanosis or edema Skin no rashes or lesions noted and no wounds Neuro oriented x3, CN's II-XII intact bilaterally, no focal motor deficits and no sensory deficits noted Psych thought process normal, cooperative, affect normal, speech normal and activity/motor behavior normal Results Lab / Micro Data 11/15/23 06:50 11/15/23 06:50 Labs: Laboratory Results - last 24 hr 11/15/23 06:50: WBC 6.1, RBC 4.98, Hgb 14.8, Hct 44.1, MCV 88.6, MCH 29.7, MCHC 33.6, RDW Std Deviation 43.9, RDW Coeff of Jenni 13.6, Plt Count 235, MPV 9.9, Sodium 143, Potassium 4.5, Chloride 109 H, Carbon Dioxide 30.0, Anion Gap 4 L, BUN 15, Creatinine 1.05, Estim Creat Clear Calc 109.91, Est GFR (MDRD) Af Amer 92, Est GFR (MDRD) Non-Af 76, BUN/Creatinine Ratio 14.3, Glucose 113 H, Calcium 8.9 Assessment & Plan Assessment/Plan (1) Ulcer of extremity due to chronic venous insufficiency: PLAN: -venogram
--- NOTE | 2023-11-15 10:35 | OP.PCM_ITS ---
Report of Operation Date of Procedure: 11/15/23 Pre-Operative Diagnosis: venous insufficiency Post-Operative Diagnosis: same Surgery/Procedure Performed:: venogram IVC IVUS IVC, bilateral common/external iliac veins angioplasty/stent IVC, bilateral common iliac veins, bilateral external iliac veins Surgeon: Guy Chavez Type of Anesthesia: Local and Sedation,Conscious Estimated Blood Loss (mL): 10 Description of Procedure: HPI: Patient is a 58-year-old male with chronic venous sufficiency with significant varicosities and skin changes particular the right lower extremity. Given the severity of his skin changes as well as his deep reflux is felt to be appropriate for central venous evaluation and possible treatment. Is taken now for elective venogram. Description of procedure: Upon obtaining form consent and verification correct patient procedure site patient taken to the Account Classification Clerk where he was positioned prepped and draped in you sterile fashion. Time was performed, sedation ministered Versed and fentanyl. Skin overlying the right common femoral vein was anesthetized 1% lidocaine the vessel accessed under ultrasound guidance with a micropuncture needle wire. This was then exchanged for micropuncture sheath routine injection ilio caval venogram was performed revealed satisfactory positioning with no extravasation or dissection. The micropuncture sheath ACSIANson wire is advanced and the micropuncture sheath exchanged out for a 10 Macedonian sheath. Through the 10 Macedonian sheath and fashion. I was advanced and recorded pullback of the IVC, right common iliac vein, right external vein was performed. This revealed inferior vena cava compression just above the confluence as well as significant right external leg vein compression. Neck skin overlying the left common femoral vein was anesthetized 1% lidocaine the vessel accessed with micropuncture needle wire. This was then exchanged out for micropuncture sheath through which hand-injection ilio caval venogram was performed revealed satisfactory position with no extravasation dissection. Through the sheath a J-wire was advanced in the vena cava micropuncture sheath exchanged for an 8 Macedonian sheath. Through the 8 Macedonian sheath intravascular probe was advanced into the vena cava and recorded pullback of the IVC, left common vein, left external vein was performed. This confirmed inferior vena cava compression distal to the confluence iliac vein external vein compression on the left as well. Adequately treat the vena cava compression extension into the IVC with dual stents from each access position. The 8 Macedonian sheath then exchanged for second 10 Macedonian sheath and the patient heparinized obstacles within minutes. Measurements based on intravascular shunt probe needed for a 16 mm stent on the right and 18 mm stent on the 16 x 90 Wallstent was then brought up and advanced via right femoral access sheath and an 18 x 90 was advanced to the left femoral access sheath. These were then deployed position simultaneously with satisfactory extension of the vena cava with to adequately traverse the area of compression. These were then dilated with a 14 on the right and 16 x 40 repeat intravascular shunt probe revealed satisfactory resolution of the IVC and common iliac compression with good stent wall apposition and good stent alignment. Next the ultrasound probe was advanced via the right repeat evaluation of the external vein was performed. A Afluentaer Vena 16 x 100 was advanced the position with adequate overlap and the initial stent and coverage of the remainder of the compression segment. This was then deployed and then postdilated a 14 x 40 angioplasty balloon. Intravascular shunt probe recorded pullback was then performed which confirmed satisfactory stent wall position and resolution of the compression. Next ultrasound probe was advanced via the left femoral access sheath and evaluation left external vein with measurements for diameter and length. A [employer] 18 x 90 Wallstent was then advanced in position with satisfactory overlap to the initial stent and coverage of the entirety of the compressed segment. This implant position. A 16 x 40 angioplasty balloon. Intravascular supply was then readvanced recorded pullback performed revealed satisfactory stent to wall position and overlap with resolution of the compression. Completion venogram confirmed brisk contrast transit with no extravasation dissection. Wires and catheters were withdrawn and silk suture placed in the skin which were then secured as the sheath withdrawn. Made pressures and held with satisfactory stasis noted the patient was taken recovery room with anticipated discharge home after bedrest.
[2023-11-15 18:20] LABS: ACT Activated Clotting Time 253 sec (74-137)
== END 2023-11-15 12:20 | disposition home or self-care (01) ==
PROVIDERS: Referring Provider Surgery Trauma Surgery; Visit Provider Surgery Trauma Surgery
DX: I87.2 Venous insufficiency (chronic) (peripheral) (principal); I87.1 Compression of vein
CPT/HCPCS: 36010; 36415; 37238; 37239; 37252; 37253; 75825; 76937; 80048; 85027; 85347; 99152; 99153; C1725; C1753; C1769; C1876; C1894; J7040; Q9967

== ENCOUNTER → 2024-12-05 | Outpatient (CLI) | payer OTHER, SELFPAY ==
[2024-12-05 14:40] LABS: Absolute Neutrophil Count 3.4 X10^3/uL (2.0-7.7); Basophil# 0.05 X10^3/uL; Basophil% 0.9 % (0-1); Eosinophil# 0.23 X10^3/uL; Hematocrit 42.7 % (40-54); Hemoglobin 14.6 g/dL (13.0-16.5); Lymphocyte % 29.3 % (19-41); Mean Corp Hgb Conc 34.2 g/dL (32-36); Mean Corpuscular Hgb 29.5 pg (27.0-32.0); Mean Corpuscular Volume 86.3 fL (80-94); Mean Platelet Vol. 10.6 fl (6.2-12.0); Monocyte# 0.44 X10^3/uL; Monocyte% 7.6 % (0-10); NRBC Flagged by Analyzer 0 % (0-5); Neutrophil # 3.37 X10^3/uL (2.7-7.7); Neutrophil % 57.9 % (47-70); Platelet Count 255 K/mm3 (150-450); RBC Distribution Width CV 13.9 % (11.6-14.6); RBC Distribution Width SD 43.8 fl (35.1-43.9); Red Blood Count 4.95 M/mm3 (4.6-6.2); White Blood Count 5.8 K/mm3 (4.4-11.0)
[2024-12-05 15:12] LABS: ALB/GLOB Ratio 1.4 RATIO (0.9-2.4); AST(SGOT) 26 U/L (<=37); Alanine Aminotransfer ALT/SGPT 29 U/L (<=46); Albumin, Serum 3.9 g/dL (3.4-4.8); Alkaline Phosphatase 75 U/L (40-129); Anion Gap 11 (5-15); BUN 12 mg/dL (4-19); BUN/Creat Ratio 12.4 RATIO (10-20); Calcium,Total 9.2 mg/dL (7.6-11.0); Chloride 103 mmol/L (98-108); Cholesterol 266 mg/dL (<=200); Creatinine, Serum 0.97 mg/dL (0.70-1.20); EST Glomerular Filtration Rate 88 (>60); Globulin 2.8 g/dL (2.2-4.2); Glucose 102 mg/dL (70-99); High Density Lipoprotein 53 mg/dL; Low Density Lipoprotein Calc. 182 mg/dL; Potassium 4.1 mmol/L (3.3-5.1); Protein, Total 6.7 g/dL (5.9-8.4); Sodium Level 138 mmol/L (133-145); Total Bilirubin 0.37 mg/dL (0.00-1.30); Triglycerides 154 mg/dL; Very Low Density Lipoprotein 31 mg/dL (5-40); cholesterol:hdl ratio screen 5.01
[2024-12-05 15:13] LABS: Vitamin D,25 Hydroxy 14.8 ng/mL (30-100)
== END | disposition home or self-care (01) ==
LOC: MFPLAB 12:12
PROVIDERS: PCP Family Medicine; Referring Provider Family Medicine; Visit Provider Family Medicine
DX: R60.9 Edema, unspecified (principal); Z13.220 Encounter for screening for lipoid disorders; R53.83 Other fatigue
CPT/HCPCS: 36415; 80053; 80061; 82306; 84443; 85025; A4216